=== PATIENT | female | born 1960 ===

== ENCOUNTER 2018-12-19 09:39 | Emergency (ER) | payer BC ==
[2018-12-19 09:57] VITALS: BP 121/75
--- NOTE | 2018-12-19 09:59 | UC ---
General HPI - HPI Summary HPI Summary: slipped on wet grass and fell injuring her R wrist yesterday. c/o pain to wrist-points to ulnar side. - History of Current Complaint Stated Complaint: RIGHT WRIST INJURY Time Seen by Provider: 12/19/18 09:46 Hx Obtained From: Patient Onset/Duration: Sudden Onset Timing: Constant Aggravating: movement Associated Signs & Symptoms: Negative: Edema, Weakness - Allergy/Home Medications Allergies/Adverse Reactions: Allergies Allergy/AdvReac Type Severity Reaction Status Date / Time No Known Allergies Allergy Verified 12/19/18 09:52 Home Medications: Home Medications Escitalopram * [Lexapro *] 20 mg PO DAILY 12/19/18 [History Confirmed 12/19/18] Solifenacin Succinate [Vesicare] 5 mg PO DAILY 12/19/18 [History Confirmed 12/19] PMH/Surg Hx/FS Hx/Imm Hx - Additional Past Medical History Additional PMH: OVER ACTIVE BLADDER Psychological History: Depression - Surgical History Surgical History: Yes Surgery Procedure, Year, and Place: tonsilectomy, breast reduction, hernia repair, - Family History Known Family History: Positive: Non-Contributory - Social History Alcohol Use: Occasionally Substance Use Type: None Smoking Status (MU): Never Smoked Tobacco - Immunization History Vaccination Up to Date: Yes Review of Systems All Other Systems Reviewed And Are Negative: Yes Musculoskeletal: Positive: Other: - R wrist pain Physical Exam Triage Information Reviewed: Yes Appearance: Well-Appearing Vital Signs Reviewed: Yes Eyes: Positive: Conjunctiva Clear Respiratory: Positive: No respiratory distress Cardiovascular: Positive: RRR Musculoskeletal: Positive: Other: - RUE: shoulder, elbow and forearm are non tender. Tender over ulnar side or wrist only, snuff box is not tender. Hand non tender and has full s/v/m function. Neurological: Positive: Alert Psychological: Positive: Age Appropriate Behavior Skin Exam: Normal Diagnostics - Radiology No standard instances Radiology Interpretation Completed By: ED Physician - R WRSIT=NO FX/DISLOCATION , Radiologist - IMPRESSION: NO FRACTURE OF THE WRIST IS NOTED. Course/Dx - Differential Dx - Multi-Symptom Differential Diagnoses: Other - NO FX/DISLOCATION ONXRAY - Diagnoses Provider Diagnosis: Sprain of right wrist Discharge - Sign-Out/Discharge Documenting (check all that apply): Patient Departure All imaging exams completed and their final reports reviewed: Yes - Discharge Plan Condition: Stable Disposition: HOME Patient Education Materials: Wrist Sprain (ED) Referrals: Getachew Jacobs MD [Primary Care Provider] - 5 Days Additional Instructions: WEAR SPLINT UNTIL CLEARED - Billing Disposition and Condition Condition: STABLE Disposition: Home - Attestation Statements Provider Attestation: I was available for consult. This patient was seen by the [facility]. The patient was not presented to , seen by or examined by ok -Kristopher Sabillon MD
== END 2018-12-19 10:41 | disposition home or self-care (01) ==
LOC: UCCORT 09:39
DX: S63.501A Unspecified sprain of right wrist, initial encounter (principal); W01.0XXA Fall on same level from slipping, tripping and stumbling without subsequent striking against object, initial encounter; Y93.01 Activity, walking, marching and hiking; N32.81 Overactive bladder; F32.9 Major depressive disorder, single episode, unspecified
CPT/HCPCS: 99212; G0463